=== PATIENT | female | born 1960 | race Caucasian/White ===

== ENCOUNTER 2016-09-24 08:12 | Day surgery (SDC) | payer OTHER ==
[~2016-09-24] VITALS: Ht 154.9 cm; Wt 62.0 kg
[2016-09-24 10:15] VITALS: Ht 154.9 cm; Wt 62.0 kg
[2016-09-24] MEDS ORDERED: ASPI-664 PO (10:22)
[2016-09-24] MEDS ORDERED: METF-382 PO (10:22)
[2016-09-24] MEDS ORDERED: SMV40T PO (10:22)
[2016-09-24] MEDS ORDERED: OMEP20TA55 PO (10:22)
[2016-09-24 10:32] VITALS: BP 109/53; PULSE 107; RESP 20
[2016-09-24] MEDS ORDERED: LIDOCAINE 2% (SDV) 5 ML INJ ONE ×2 (10:35)
[2016-09-24] MEDS ORDERED: LIDOCAINE 100 MG SYRINGE ONE (10:36)
[2016-09-24 11:39] VITALS: BP 128/73; RESP 20
--- NOTE | 2016-09-24 12:41 | GILP ---
DATE OF PROCEDURE: 09/24/2016 PROCEDURE: Esophagogastroduodenoscopy. PREOPERATIVE DIAGNOSIS: Patient presenting with history of chronic abdominal pain unresponsive to r outine therapy. Patient has been on Prilosec with no response for the pain, rule out peptic ulcer d isease, esophagitis. POSTOPERATIVE DIAGNOSES: Multiple polyps measuring at least from 3 mm to about 2 cm in size, about 20-25 polyps were noted. Multiple biopsies were obtained. DESCRIPTION OF PROCEDURE: After the informed written consent was obtained, the patient was asked to lie on the left lateral side, 3 mg Versed and 75 mcg of fentanyl was given as intravenous anesthesi a. When the patient became somnolent, the Olympus video upper endoscope was introduced into the orophar ynx, then into the esophagus. The entire esophagus appeared normal. Scope at this time was advance d into the stomach. Stomach showed evidence of multiple polyps measuring at least 2 mm to 2 cm in d iameter. There are 3 polyps noted in the fundus of the stomach. They were measuring at least 2 cm in diameter, each one of them was located on a stalk. Multiple biopsies were obtained and from 3 di fferent polyps and the polyp tissue was placed into the bottle in 3 different bottles. Multiple kari yps were noted in the body of the stomach, multiple biopsies were obtained and biopsy was also obtai marcelina from the antrum, the lesser curvature and the fundus to rule out H. pylori infection. Duodenum appeared normal up to the end of the third portion. Scope at this time was withdrawn and no additio nal abnormalities detected and the procedure was terminated. PLAN: Recommend wait for the pathology report. Dictated By: JUAN CLEMENTE/NTS Conf#: [id number] DID#: [id number] CC: ; JUAN GILMAN MD;*EndCC*
[2016-09-24] MEDS ORDERED: FENTAnyl 50 MCG/ML VIAL ONE (12:44)
[2016-09-24] MEDS ORDERED: MIDAZOLAM 1 MG/ML 2 ML INJ ONE ×2 (12:44)
--- NOTE | 2016-09-24 12:53 | GILP ---
DATE OF PROCEDURE: 09/24/2016 PROCEDURE: Colonoscopy. PREOPERATIVE DIAGNOSIS: Screening colonoscopy to rule out colon polyps. Patient had apparently pre vious colonoscopy unsuccessful and it was very limited examination, rule out colon polyps. POSTOPERATIVE DIAGNOSES: A 5 mm flat polyp noted which appears to have risen above the level of the surface of the mucosa. Multiple biopsies were done and tattooing was performed. DESCRIPTION OF PROCEDURE: After the informed written consent was obtained, the patient was given 4 mg Versed and 75 mcg of fentanyl as intravenous anesthesia. When the patient became somnolent video upper endoscope was introduced into the rectum. Scope was very gently advanced all the way to the splenic flexure, transverse colon, hepatic flexure and the cecum. Entire colon appeared perfectly normal with no mucosal abnormality. Endoscope at this t fausto was withdrawn. From the cecum on the way out, careful evaluation was carried out. At about 10 cm from the anus, there is evidence of a 5 mm raised polyp was noted without a stalk. Multiple biop sies were obtained to remove this polyp. Tattooing was performed by using the SPOT. Retroflexion s howed no internal hemorrhoids. On the way out, no external hemorrhoids were noted and the procedure was terminated. PLAN: Recommend wait for the pathology report. Dictated By: JUAN CLEMENTE/MONIKA Conf#: [id number] DID#: [id number] CC: ; JUAN GILMAN MD;*EndCC*
== END 2016-09-24 12:58 | disposition home or self-care (01) ==
LOC: GIL 08:12
PROVIDERS: ATTEND Internal Medicine Gastroenterology
DX: Z12.11 Encounter for screening for malignant neoplasm of colon (principal); K63.5 Polyp of colon; K31.7 Polyp of stomach and duodenum
CPT/HCPCS: 43239; 45380; 88300; 88305; J2001; J2250; J3010; Z7610